=== PATIENT | female | born 1990 | race African-American/Black ===

== ENCOUNTER 2018-01-01 11:52 | Emergency (ER) | payer OTHER, SELFPAY | END 2018-01-01 13:32 | disposition home or self-care (01) | LOC: ERS 11:52 | DX: J11.1 Influenza due to unidentified influenza virus with other respiratory manifestations (principal); F41.9 Anxiety disorder, unspecified | CPT/HCPCS: 99283 ==

== ENCOUNTER 2018-03-07 11:19 | Emergency (ER) | payer SELFPAY ==
[2018-03-07] MEDS ORDERED: Dexamethasone 10 MG/ML VIAL ONE (12:53)
[2018-03-07] MEDS ORDERED: Metoclopramide HCl 10 MG TAB ONE (12:53)
[2018-03-07] MEDS ORDERED: Ketorolac Tromethamine 30 MG/ML VIAL ONE (12:53)
[2018-03-07 13:12] LABS: Hemoglobin 6.7 g/dL (12.0-16.0); Mean Corpuscular HGB CONC 29.4 g/dL (32.0-36.0); Mean Corpuscular Hemoglobin 19.4 pg (27.0-31.0); Mean Platelet Volume 7.9 fL (7.4-10.4); Platelet Count 90 thou/uL (130-400); RBC Distribution Width 19.6 % (11.5-14.5); Red Blood Cell (RBC) Count 3.44 mill/uL (4.20-5.40); White Blood Cell (WBC) Count 4.2 thou/uL (4.8-10.8)
[2018-03-07 13:18] LABS: BHCG - Serum Negative (NEGATIVE); Pregs Control Background? CLEAR/WHITE (CLR/WHITE); Pregs Control Bar Appear? YES (CONTROL BAR)
[2018-03-07 13:28] LABS: Anion Gap 10 mmol/L (10-20); BUN (Urea Nitrogen) 8 mg/dL (7.0-18.7); Calc. Creatinine Clearance 0 mL/min (70-130); Calcium 9.8 mg/dL (7.8-10.44); Carbon Dioxide 26 mmol/L (22-29); Chloride 107 mmol/L (98-107); Estimated GFR-MDRD Greater than 90; Glucose 67 mg/dL (70-105); Potassium 3.7 mmol/L (3.5-5.1); Sodium 139 mmol/L (136-145)
[2018-03-07 13:38] LABS: #Eosinphils 0.1 thou/uL (0.0-0.7); #Lymphocytes 1.7 thou/uL (1.20-3.40); #Monocytes 0.4 thou/uL (0.11-0.59); #Neutrophils 1.9 thou/uL (1.40-6.50); %Basophils 0.8 % (0.0-1.0); %Eosinophils 1.6 % (0.0-10.0); %Lymphocytes 40.6 % (21.0-51.0); %Monocytes 10.4 % (0.0-10.0); %Neutrophils 46.6 % (42.0-75.0); Anisocytosis SLIGHT = 6-15 cells (100X) (0-5/hpf); Hypochromia SLIGHT = 6-15 cells (100X) (0-5/hpf); MDiff Complete? YES; Microcytosis SLIGHT = 6-15 cells (100X) (0-5/hpf); Ovalocytes SLIGHT = 2-5 cells (100X) (0-1/hpf); PLT Morphology Comment Appears Decreased
--- NOTE | 2018-03-07 14:43 | CT ---
CT BRAIN WITHOUT CONTRAST: History: Headache. FINDINGS: Compared with exam of 08-03-10. No evidence of infarct, hemorrhage, midline shift or abnormal extraaxial fluid collections are seen. The ventricular size is normal and the basilar cisterns patent. The bony calvarium is intact. The vis ualized paranasal sinuses and mastoid air cells are clear. IMPRESSION: No CT evidence of acute intracranial process. POS: [facility]
== END 2018-03-07 15:10 | disposition home or self-care (01) ==
LOC: ERS 11:19
DX: R51 Headache (principal); F41.9 Anxiety disorder, unspecified
CPT/HCPCS: 70450; 80048; 84443; 84703; 85025; 96361; 96374; 96375; J1100; J1885

== ENCOUNTER 2018-07-10 16:05 | Inpatient (IN) | payer OTHER, SELFPAY ==
[2018-07-10 16:46] LABS: Hemoglobin 5.9 g/dL (12.0-16.0); Mean Corpuscular HGB CONC 29.4 g/dL (32.0-36.0); Mean Corpuscular Hemoglobin 18.1 pg (27.0-31.0); Mean Corpuscular Volume 61.6 fL (78.0-98.0); Mean Platelet Volume 7.7 fL (7.4-10.4); Platelet Count 122 thou/uL (130-400); RBC Distribution Width 19.6 % (11.5-14.5); Red Blood Cell (RBC) Count 3.27 mill/uL (4.20-5.40); White Blood Cell (WBC) Count 4.2 thou/uL (4.8-10.8)
[2018-07-10 16:47] LABS: INR-International Normal Ratio 1.1; PTT 35.3 SEC (22.9-36.1); Prothrombin Time 14.6 SEC (12.0-14.7)
[2018-07-10 17:00] LABS: #Lymphocytes 1.4 thou/uL (1.20-3.40); #Monocytes 0.6 thou/uL (0.11-0.59); #Neutrophils 2.2 thou/uL (1.40-6.50); %Basophils 0.9 % (0.0-1.0); %Eosinophils 0.9 % (0.0-10.0); %Monocytes 14.1 % (0.0-10.0); %Neutrophils 51.2 % (42.0-75.0); Anisocytosis SLIGHT = 6-15 cells (100X) (0-5/hpf); Hypochromia MODERATE=16-30 cells (100X) (0-5/hpf); MDiff Complete? YES; Microcytosis MODERATE=15-30 cells (100X) (0-5/hpf); Ovalocytes SLIGHT = 2-5 cells (100X) (0-1/hpf); PLT Morphology Comment Appears Decreased; Poikilocytosis SLIGHT = 6-15 cells (100X) (0-5/hpf); Tear Drops SLIGHT = 2-5 cells (100X) (0-1/hpf)
[2018-07-10] MEDS ORDERED: Ondansetron HCl/PF 4 MG/2 ML Vial IVP PRN (18:51)
[2018-07-10] MEDS ORDERED: Acetaminophen 325 MG TAB PO PRN (18:51)
[2018-07-10] MEDS ORDERED: Ondansetron ODT 4 MG TAB SL PRN (18:51)
[2018-07-10] MEDS ORDERED: traMADol HCl 50 MG TAB PO PRN (20:08)
[2018-07-10 20:41] VITALS: BMI 21.2
--- NOTE | 2018-07-10 21:52 | ULT ---
ABDOMINAL ULTRASOUND LIMITED: 07/10/18 CLINICAL HISTORY: Splenomegaly. FINDINGS: The spleen is documented at 13 cm in length. There is no focal splenic lesion. No perisplenic ascites . IMPRESSION: Splenic length of 13 cm. No intrinsic splenic lesion is evident sonographically. POS: [facility]
[2018-07-10 22:23] LABS: MONO NEGATIVE CONTROL ZONE White (Negative) (White); MONO POSITIVE CONTROL Pink Line (Positive) (PINK/RED); Mononucleosis NEGATIVE (NEGATIVE)
[2018-07-10] MEDS: Famotidine/PF 20 mg/2ml Vial SLOW IVP SCH (22:47)
[2018-07-10 22:49] LABS: #Eosinphils 0.1 thou/uL (0.0-0.7); #Lymphocytes 1.7 thou/uL (1.20-3.40); #Monocytes 0.6 thou/uL (0.11-0.59); #Neutrophils 1.9 thou/uL (1.40-6.50); %Basophils 1.1 % (0.0-1.0); %Eosinophils 1.3 % (0.0-10.0); %Lymphocytes 39.3 % (21.0-51.0); %Monocytes 14.5 % (0.0-10.0); %Neutrophils 43.8 % (42.0-75.0); Anisocytosis MODERATE=16-30 cells (100X) (0-5/hpf); Hemoglobin 6.6 g/dL (12.0-16.0); Hypochromia SLIGHT = 6-15 cells (100X) (0-5/hpf); MDiff Complete? YES; Mean Corpuscular HGB CONC 29.9 g/dL (32.0-36.0); Mean Corpuscular Hemoglobin 19.4 pg (27.0-31.0); Mean Corpuscular Volume 64.8 fL (78.0-98.0); Mean Platelet Volume 9.4 fL (7.4-10.4); Ovalocytes SLIGHT = 2-5 cells (100X) (0-1/hpf); PLT Morphology Comment Appears Decreased; Platelet Count 113 thou/uL (130-400); Red Blood Cell (RBC) Count 3.38 mill/uL (4.20-5.40); White Blood Cell (WBC) Count 4.4 thou/uL (4.8-10.8)
[2018-07-11 05:07] LABS: Anion Gap 12 mmol/L (10-20); BUN (Urea Nitrogen) 7 mg/dL (7.0-18.7); Calc. Creatinine Clearance 127 mL/min (70-130); Calcium 9.6 mg/dL (7.8-10.44); Carbon Dioxide 20 mmol/L (22-29); Chloride 110 mmol/L (98-107); Estimated GFR-MDRD Greater than 90; Glucose 86 mg/dL (70-105); Iron 43 ug/dL (50-170); Iron Binding Capacity, Total 360 mcg/dL (265-497); Potassium 3.8 mmol/L (3.5-5.1); Sodium 138 mmol/L (136-145); Transferrin, Serum 288 mg/dL (180-382)
[2018-07-11 05:35] LABS: #Basophils 0.1 thou/uL (0.0-0.2); #Eosinphils 0.1 thou/uL (0.0-0.7); #Monocytes 0.7 thou/uL (0.11-0.59); #Neutrophils 1.9 thou/uL (1.40-6.50); %Basophils 1.1 % (0.0-1.0); %Eosinophils 1.9 % (0.0-10.0); %Lymphocytes 42.7 % (21.0-51.0); %Monocytes 14.1 % (0.0-10.0); %Neutrophils 40.1 % (42.0-75.0); Anisocytosis MODERATE=16-30 cells (100X) (0-5/hpf); MDiff Complete? YES; Mean Corpuscular HGB CONC 30.9 g/dL (32.0-36.0); Mean Corpuscular Volume 67.9 fL (78.0-98.0); Mean Platelet Volume 8.7 fL (7.4-10.4); Microcytosis SLIGHT = 6-15 cells (100X) (0-5/hpf); PLT Morphology Comment Appears Decreased; Platelet Count 115 thou/uL (130-400); RBC Distribution Width 23.3 % (11.5-14.5); Red Blood Cell (RBC) Count 3.81 mill/uL (4.20-5.40); White Blood Cell (WBC) Count 4.6 thou/uL (4.8-10.8)
[2018-07-11 05:56] LABS: Folate (Folic Acid) 9.8 ng/mL (7.0-31.4)
[2018-07-11] MEDS: Famotidine/PF 20 mg/2ml Vial SLOW IVP SCH ×2 (08:12→20:45)
--- NOTE | 2018-07-11 09:58 | CON ---
DATE OF CONSULTATION: 07/11/2018 ADMITTING PHYSICIAN: Dr. Gaudencio Urrutia CONSULTING PHYSICIAN: Samir David M.D. REASON FOR CONSULTATION: Anemia, history of heavy vaginal bleeding. HISTORY OF PRESENT ILLNESS: Ms. Anthony is a 28-year-old female, G2, P2-0-0-2 with a reported last n ormal menstrual period of 05/10/2018 who was admitted by the hospitalist service when she was found t o have severe anemia with a hemoglobin of 5.9 in the ER. She states that her periods have been progr essively heavy over the last 2 months. She states that she tends to have heavy periods and has been placed on control pills in the past, but has not taken them. She is currently now status post 2 units of packed red blood cells. She denies dizziness or headache at the present time. She is als o currently being treated for a toothache on IV antibiotics. PAST OBSTETRICAL HISTORY: Includes 2 uncomplicated vaginal deliveries. PAST MEDICAL HISTORY: None. CURRENT MEDICATIONS: IV amoxicillin. PAST SURGICAL HISTORY: None. ALLERGIES: No known allergies. SOCIAL HISTORY: She states she drinks socially, but does not smoke. She denies illicit drug use. FAMILY HISTORY: Denies gynecologic problems or pelvic malignancies. REVIEW OF SYSTEMS: At the present time she denies dizziness, headache, nausea, vomiting, fever or ch ills. PHYSICAL EXAMINATION: VITAL SIGNS: This morning show a blood pressure of 111/65, pulse of 50, temperature 98.1, O2 saturat ion is 100% on room air. GENERAL: She is very pleasant. She is in no acute distress. ABDOMEN: Soft and nontender. PELVIC: Deferred. LABORATORY DATA: On admission, her hemoglobin was noted to be 5.9. This morning after transfusion h er white count is 4.6. Her hemoglobin and hematocrit are 8.0 and 25.8, respectively, and her platele t count is 115,000. Her beta hCG on admission was less than 1.2. PT and PTT are 14.6 and 35.3. ASSESSMENT: 1. History of menorrhagia. 2. Anemia, now status post 2 units packed red blood cells. PLAN: At this time, I have ordered a pelvic ultrasound to review possible etiologies of her bleeding . Once this is accomplished and reviewed other recommendations will be made.
--- NOTE | 2018-07-11 10:48 | ULT ---
COMPLETE PELVIC ULTRASOUND: HISTORY: Menorrhagia. Anemia. COMPARISON: None. TECHNIQUE: Real-time deal-scale color Doppler and spectral analysis of the pelvis is performed via transabdomina l approach. FINDINGS: The uterus measures 9.4 x 4.7 x 7 cm. Endometrial thickness is 8 mm. The right ovary measures 2.9 x 3.6 x 1.8 cm, and the left ovary measures 3.1 x 3.5 x 1.8 cm. There i s low grade small volume free fluid. IMPRESSION: Normal examination. POS: [facility]
[2018-07-11] MEDS ORDERED: traMADol HCl 50 MG TAB PO PRN (11:02)
[2018-07-11] MEDS ORDERED: Acetaminophen 500 MG TAB PO PRN (11:02)
--- NOTE | 2018-07-11 11:48 | PDOC.EVN ---
Event Note - Event Note Event Note: Pelvic USG returns nonfocal. Will start Provera 10 mg BID and observe for now.
[2018-07-11] MEDS ORDERED: medroxyPROGESTERone Acetate 5 MG TAB PO SCH (12:00)
[2018-07-11 12:51] LABS: #Lymphocytes 1.3 thou/uL (1.20-3.40); #Monocytes 0.5 thou/uL (0.11-0.59); #Neutrophils 2.2 thou/uL (1.40-6.50); %Eosinophils 0.9 % (0.0-10.0); %Lymphocytes 32.3 % (21.0-51.0); %Neutrophils 53.8 % (42.0-75.0); Hemoglobin 8.5 g/dL (12.0-16.0); Hypochromia MODERATE=16-30 cells (100X) (0-5/hpf); MDiff Complete? YES; Mean Corpuscular HGB CONC 31.1 g/dL (32.0-36.0); Mean Corpuscular Volume 67.6 fL (78.0-98.0); Microcytosis MODERATE=15-30 cells (100X) (0-5/hpf); Ovalocytes SLIGHT = 2-5 cells (100X) (0-1/hpf); PLT Morphology Comment Appears Decreased; Platelet Count 111 thou/uL (130-400); Polychromasia MODERATE = 3-4 cells (100X) (0-2/hpf); RBC Distribution Width 23.2 % (11.5-14.5); Red Blood Cell (RBC) Count 4.02 mill/uL (4.20-5.40); White Blood Cell (WBC) Count 4.1 thou/uL (4.8-10.8)
--- NOTE | 2018-07-11 13:34 | PDOC.EVN ---
Event Note - Event Note Event Note: Pelvic exam shows only a small amount of blood in the vault. Cervix is normal in appearance, no lesions seen. Bimanual shows upper limits, nl sized uterus. Rec. discharge on OCPs for cycle control, rx. has been placed on chart. Will f/u with [facility].
[2018-07-11] MEDS: AMOXicillin 250 MG CAP PO SCH ×2 (16:24→20:46)
[2018-07-11] MEDS: medroxyPROGESTERone Acetate 5 MG TAB PO SCH (20:46)
--- NOTE | 2018-07-11 23:34 | PDOC.PN ---
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 - Objective Resuscitation Status: Resuscitation Status FULL:Full Resuscitation Vital Signs & Weight: Vital Signs (12 hours) Temp Pulse Resp BP Pulse Ox 07/11/18 20:00 97.9 F 64 16 121/78 98 07/11/18 18:27 97.5 F L 51 L 12 114/67 100 07/11/18 14:23 98.3 F 77 16 100 Weight Weight 152 lb 1.6 oz I&O: 07/10/18 07/11/18 07/12/18 06:59 06:59 06:59 Intake Total 350 720 Balance 350 720 Result Diagrams: 07/11/18 12:06 07/11/18 03:49 Phys Exam - Physical Examination Constitutional: NAD lying in hospital bed HEENT: moist MMs Respiratory: no wheezing, no rales, no rhonchi, clear to auscultation bilateral Cardiovascular: RRR, no significant murmur, no rub Gastrointestinal: soft, positive bowel sounds Neurological: moves all 4 limbs Psychiatric: normal affect, A&O x 3 Dx/Plan - Plan * fatigue * likely multifactorial - d/w pt that her anemia may have contributed to symptoms but it is currently improved * apprec purchasing buyer c/s * will start provera and closely monitor hemodynamics - which have been stable * could also be 2/2 chronic sleep deprivation - counseled pt re: sleep hygiene * * will request rehab screen at pt request. if not a candidate for rehab, may d/c * greater than 30 min spent discussing medical plan with pt
[2018-07-12 05:09] LABS: Anion Gap 10 mmol/L (10-20); BUN (Urea Nitrogen) 10 mg/dL (7.0-18.7); Calc. Creatinine Clearance 129 mL/min (70-130); Calcium 9.9 mg/dL (7.8-10.44); Carbon Dioxide 22 mmol/L (22-29); Chloride 110 mmol/L (98-107); Estimated GFR-MDRD Greater than 90; Glucose 96 mg/dL (70-105); Sodium 138 mmol/L (136-145)
[2018-07-12] MEDS: medroxyPROGESTERone Acetate 5 MG TAB PO SCH (08:58)
[2018-07-12] MEDS: AMOXicillin 250 MG CAP PO SCH (08:58)
[2018-07-12] MEDS: Famotidine/PF 20 mg/2ml Vial SLOW IVP SCH (08:59)
[2018-07-12] MEDS ORDERED: Multivitamins CHEW w/Iron Tablet PO SCH (09:00)
[2018-07-12 09:12] LABS: ALT (SGPT) 23 U/L (8-55); AST (SGOT) 24 U/L (5-34); Alkaline Phosphatase 44 U/L (40-150); Bilirubin, Direct 0.2 mg/dL (0.1-0.3); Bilirubin, Total 0.4 mg/dL (0.2-1.2); Protein, Total 6.6 g/dL (6.0-8.3)
[2018-07-12 11:35] VITALS: BP 111/71; TEMP 98
== END 2018-07-12 13:54 | disposition home or self-care (01) | DRG 812 ==
LOC: ERS 16:05 → 2NO 17:05 → T4-B 07-11 10:24
PROVIDERS: ADMIT Internal Medicine; ATTEND Internal Medicine
PROC: 30233N1 Transfusion of Nonautologous Red Blood Cells into Peripheral Vein, Percutaneous Approach (ICD-10-PCS; principal; 2018-07-10)
DX: D64.9 Anemia, unspecified (principal); N92.0 Excessive and frequent menstruation with regular cycle
CPT/HCPCS: 36415; 36430; 76705; 76856; 80048; 80076; 82607; 82746; 83540; 83550; 84443; 84466; 84702; 85025; 85060; 85610; 85730; 86308; 86850; 86900; 86901; 93976; 99285; G8978-GP-CI; G8978-GP-CJ; G8979-GP-CI; G8979-GP-CJ; G8980-GP-CI; G8980-GP-CJ; G8987-GO-CI; G8988-GO-CI; G8989-GO-CI; P9016; S0028

== ENCOUNTER 2018-11-10 07:48 | Emergency (ER) | payer OTHER ==
[2018-11-10] MEDS ORDERED: Ketorolac Tromethamine 30 MG/ML VIAL ONE (09:15)
[2018-11-10 09:36] LABS: BHCG - Serum Negative (NEGATIVE); Pregs Control Background? CLEAR/WHITE (CLR/WHITE); Pregs Control Bar Appear? YES (CONTROL BAR)
== END 2018-11-10 09:58 | disposition home or self-care (01) ==
LOC: ERS 07:48
DX: J02.9 Acute pharyngitis, unspecified (principal); F41.9 Anxiety disorder, unspecified
CPT/HCPCS: 84484; 84703; 85379; 87081; 87430; 87804; 93005; 96374; J1885

== ENCOUNTER 2018-12-21 17:10 | Emergency (ER) | payer OTHER ==
[2018-12-21] MEDS ORDERED: Benzonatate 100 MG CAP ONE (18:02)
--- NOTE | 2018-12-21 18:54 | RAD ---
RADIOGRAPH CHEST 2 VIEWS: HISTORY: 28-year-old female with cough. FINDINGS: There is no air space density, pulmonary edema, pleural effusion, pneumothorax, or cardiomegaly. IMPRESSION: No acute cardiopulmonary findings. george POS: [facility]
--- NOTE | 2018-12-26 07:26 | PQF ---
[facility] POST DISCHARGE CLINICAL DOCUMENTATION IMPROVEMENT CLARIFICATION FORM l Todays Date: 12/25/18 l Patients Name AMOR MALAVE l l Admit Date 12/21/18 l Disch Date 12/21/18 Peanut Picker Name [email or web address] To be completed by Peanut Picker: Present Clinical Indicators - Signs / Symptoms Results and Location in Medical Record [ ] Documentation of: [ ] [ ] Documentation of: [ ] [ ] Documentation of: [ ] [ ] Documentation of: [ ] [ ] Risks [ ] [ ] [ ] Treatment [ ] BRONCHITIS MISSING SPECIFICITY FOR BRONCHITIS WHETHER ACUTE OR CHRONIC. [ ] [ ] To be completed by Physician BEN Viveros Krista The documentation in this patients record requires clarification to ensure coding compliance and accuracy. Check the appropriate box and include in your discharge summary. [ ] [ ] [ ] [ ] Please check this box if this does not apply to this patient [ ] Unable to determine [ ] Other diagnosis: Review the following information and exercise your independent professional judgment in responding to the clarification. Based upon the clinical findings, risk factors, and treatment, please clarify if you are treating one of the above probable or suspected diagnoses. Physician Signature: Date Time MTDD
== END 2018-12-21 18:08 | disposition home or self-care (01) ==
LOC: ERS 17:10
DX: J20.9 Acute bronchitis, unspecified (principal); J31.0 Chronic rhinitis; D50.0 Iron deficiency anemia secondary to blood loss (chronic); F41.9 Anxiety disorder, unspecified; Z79.899 Other long term (current) drug therapy
CPT/HCPCS: 71046

== ENCOUNTER 2019-08-30 11:57 | Emergency (ER) | payer OTHER, SELFPAY ==
[2019-08-30 13:01] LABS: Hemoglobin 8.2 g/dL (12.0-16.0); Mean Corpuscular HGB CONC 30.1 g/dL (32.0-36.0); Mean Corpuscular Hemoglobin 19.6 pg (27.0-31.0); Mean Corpuscular Volume 65.2 fL (78.0-98.0); Mean Platelet Volume 9.5 fL (7.4-10.4); Platelet Count 140 thou/uL (130-400); RBC Distribution Width 17.9 % (11.5-14.5); Red Blood Cell (RBC) Count 4.19 mill/uL (4.20-5.40); White Blood Cell (WBC) Count 4.5 thou/uL (4.8-10.8)
[2019-08-30 13:09] LABS: #Lymphocytes 1.4 thou/uL (1.20-3.40); #Monocytes 0.5 thou/uL (0.11-0.59); #Neutrophils 2.5 thou/uL (1.40-6.50); %Eosinophils 0.6 % (0.0-10.0); %Lymphocytes 30.1 % (21.0-51.0); %Neutrophils 56.2 % (42.0-75.0); Hypochromia SLIGHT = 6-15 cells (100X) (0-5/hpf); Large Platelets MODERATE; MDiff Complete? YES; Microcytosis SLIGHT = 6-15 cells (100X) (0-5/hpf); Platelet Morphology Comment Appears Adequate; Polychromasia SLIGHT = 2-3 cells (100X) (0-2/hpf)
[2019-08-30 13:14] LABS: ALT (SGPT) 10 U/L (8-55); AST (SGOT) 13 U/L (5-34); Albumin 4.7 g/dL (3.5-5.0); Alkaline Phosphatase 59 U/L (40-110); Anion Gap 11 mmol/L (10-20); BUN (Urea Nitrogen) 7 mg/dL (7.0-18.7); Bilirubin, Total 0.4 mg/dL (0.2-1.2); Calc. Creatinine Clearance 0 mL/min (70-130); Carbon Dioxide 22 mmol/L (22-29); Chloride 106 mmol/L (98-107); Estimated GFR-MDRD Greater than 90; Globulin 3.1 g/dL (2.4-3.5); Glucose 94 mg/dL (70-105); Potassium 3.6 mmol/L (3.5-5.1); Protein, Total 7.8 g/dL (6.0-8.3); Sodium 135 mmol/L (136-145)
[2019-08-30 13:29] LABS: Bilirubin Negative (Negative); Blood, Urine Negative (Negative); Clarity Clear (Clear); Glucose, Urine (Dipstick) Normal (Negative); Leukocyte 250 Leu/uL (Negative); Mucous/LPF Rare LPF (<2+); Nitrite Negative (Negative); Protein, Urine (Dipstick) Negative (Neg-Trace); RBC/HPF 0-3 HPF (0-3); Squamous Epithelial 0-3 HPF (0-3); Urobilinogen Normal mg/dL (Less than 2)
[2019-08-30 13:36] LABS: Bacteria/HPF Rare-Few HPF (None Seen); Pregnancy Test - Urine (BHCG) Negative (Negative); Pregu Control Background? CLEAR/WHITE (CLR/WHITE); Pregu Control Bar Appear? YES (CONTROL BAR); Specific Gravity 1.013 (1.002-1.036)
--- NOTE | 2019-09-01 17:17 | EKG ---
Test Reason : Blood Pressure : / mmHG Vent. Rate : 069 BPM Atrial Rate : 069 BPM P-R Int : 158 ms QRS Dur : 078 ms QT Int : 384 ms P-R-T Axes : 004 038 012 degrees QTc Int : 411 ms Normal sinus rhythm Normal ECG Confirmed by BIJAN LARA MD ([id number]), television news video editor DENNIS DOMINIQUE ([id number]) on 09/01/2019 5:16:43 PM Referred By: Confirmed By:BIJAN LARA MD
== END 2019-08-30 14:00 | disposition home or self-care (01) ==
LOC: ERS 11:57
DX: D64.9 Anemia, unspecified (principal); R55 Syncope and collapse; F41.9 Anxiety disorder, unspecified; D50.9 Iron deficiency anemia, unspecified
CPT/HCPCS: 36415; 80053; 81003; 81015; 81025; 85025; 93005

== ENCOUNTER 2020-04-12 15:56 | Emergency (ER) | payer SELFPAY ==
[2020-04-12 16:52] LABS: #Lymphocytes 1.4 thou/uL (1.20-3.40); #Monocytes 0.5 thou/uL (0.11-0.59); #Neutrophils 2.8 thou/uL (1.40-6.50); %Basophils 0.9 % (0.0-1.0); %Eosinophils 0.7 % (0.0-10.0); %Lymphocytes 29.3 % (21.0-51.0); %Monocytes 10.6 % (0.0-10.0); %Neutrophils 58.4 % (42.0-75.0); Hemoglobin 7.9 g/dL (12.0-16.0); Mean Corpuscular HGB CONC 29.7 g/dL (32.0-36.0); Mean Corpuscular Hemoglobin 22.6 pg (27.0-31.0); Mean Corpuscular Volume 76.2 fL (78.0-98.0); RBC Distribution Width 15.9 % (11.5-14.5); White Blood Cell (WBC) Count 4.9 thou/uL (4.8-10.8)
[2020-04-12 17:05] LABS: Anisocytosis SLIGHT = 6-15 cells (100X) (0-5/hpf); Hypochromia SLIGHT = 6-15 cells (100X) (0-5/hpf); MDiff Complete? YES; Mean Platelet Volume 8.8 fL (7.4-10.4); Microcytosis SLIGHT = 6-15 cells (100X) (0-5/hpf); Ovalocytes SLIGHT = 2-5 cells (100X) (0-1/hpf); Platelet Count 121 thou/uL (130-400); Platelet Morphology Comment Appears Decreased; Polychromasia SLIGHT = 2-3 cells (100X) (0-2/hpf); Tear Drops SLIGHT = 2-5 cells (100X) (0-1/hpf)
[2020-04-12 17:07] LABS: ALT (SGPT) 18 U/L (8-55); AST (SGOT) 16 U/L (5-34); Albumin 4.2 g/dL (3.5-5.0); Alkaline Phosphatase 52 U/L (40-110); Anion Gap 9 mmol/L (10-20); BUN (Urea Nitrogen) 8 mg/dL (7.0-18.7); Bilirubin, Total 0.2 mg/dL (0.2-1.2); Calc. Creatinine Clearance 0 mL/min (70-130); Calcium 9.4 mg/dL (7.8-10.44); Carbon Dioxide 24 mmol/L (22-29); Chloride 109 mmol/L (98-107); Estimated GFR-MDRD 84; Globulin 2.9 g/dL (2.4-3.5); Glucose 107 mg/dL (70-105); Potassium 3.5 mmol/L (3.5-5.1); Protein, Total 7.1 g/dL (6.0-8.3); Sodium 138 mmol/L (136-145)
[2020-04-12 17:11] LABS: BHCG - Serum Negative (NEGATIVE); Pregs Control Background? CLEAR/WHITE (CLR/WHITE); Pregs Control Bar Appear? YES (CONTROL BAR)
== END 2020-04-12 17:33 | disposition home or self-care (01) ==
LOC: ERS 15:56
DX: D64.9 Anemia, unspecified (principal); F41.9 Anxiety disorder, unspecified
CPT/HCPCS: 36415; 80053; 84703; 85025; 86850; 86900; 86901; 99284

== ENCOUNTER 2020-08-08 17:44 | Emergency (ER) | payer SELFPAY ==
[2020-08-08 19:04] LABS: BHCG - Serum Negative (NEGATIVE); Pregs Control Background? CLEAR/WHITE (CLR/WHITE); Pregs Control Bar Appear? YES (CONTROL BAR)
[2020-08-08 19:06] LABS: #Basophils 0.1 thou/uL (0.0-0.2); #Eosinphils 0.1 thou/uL (0.0-0.7); #Lymphocytes 1.9 thou/uL (1.20-3.40); #Monocytes 0.4 thou/uL (0.11-0.59); #Neutrophils 2.1 thou/uL (1.40-6.50); %Basophils 1.1 % (0.0-1.0); %Eosinophils 2.2 % (0.0-10.0); %Lymphocytes 42.1 % (21.0-51.0); %Monocytes 8.3 % (0.0-10.0); %Neutrophils 46.3 % (42.0-75.0); Hemoglobin 11.7 g/dL (12.0-16.0); Mean Corpuscular HGB CONC 30.4 g/dL (32.0-36.0); Mean Corpuscular Volume 82.4 fL (78.0-98.0); RBC Distribution Width 22.4 % (11.5-14.5); Red Blood Cell (RBC) Count 4.69 mill/uL (4.20-5.40); White Blood Cell (WBC) Count 4.4 thou/uL (4.8-10.8)
[2020-08-08 19:19] LABS: Hypochromia SLIGHT = 6-15 cells (100X) (0-5/hpf); MDiff Complete? YES; Mean Platelet Volume 9.3 fL (7.4-10.4); Ovalocytes SLIGHT = 2-5 cells (100X) (0-1/hpf); Platelet Count 162 thou/uL (130-400); Platelet Morphology Comment Appears Adequate; Polychromasia SLIGHT = 2-3 cells (100X) (0-2/hpf); Tear Drops SLIGHT = 2-5 cells (100X) (0-1/hpf)
== END 2020-08-08 19:48 | disposition home or self-care (01) ==
LOC: ERS 17:44
DX: D25.9 Leiomyoma of uterus, unspecified (principal); D50.9 Iron deficiency anemia, unspecified; F41.9 Anxiety disorder, unspecified; Z79.899 Other long term (current) drug therapy
CPT/HCPCS: 36415; 84703; 85025; 86900; 86901; 99284

== ENCOUNTER 2020-09-29 17:48 | Emergency (ER) | payer SELFPAY ==
[2020-09-29 18:36] LABS: #Basophils 0.1 thou/uL (0.0-0.2); #Eosinphils 0.1 thou/uL (0.0-0.7); #Lymphocytes 2.5 thou/uL (1.20-3.40); #Monocytes 0.5 thou/uL (0.11-0.59); #Neutrophils 2.9 thou/uL (1.40-6.50); %Basophils 1.5 % (0.0-1.0); %Eosinophils 1.2 % (0.0-10.0); %Lymphocytes 41.3 % (21.0-51.0); %Monocytes 8.6 % (0.0-10.0); %Neutrophils 47.4 % (42.0-75.0); Hemoglobin 13.1 g/dL (12.0-16.0); Mean Corpuscular HGB CONC 33.7 g/dL (32.0-36.0); Mean Corpuscular Hemoglobin 30.2 pg (27.0-31.0); Mean Corpuscular Volume 89.5 fL (78.0-98.0); Mean Platelet Volume 11.5 fL (7.4-10.4); Platelet Count 175 thou/uL (130-400); RBC Distribution Width 15.3 % (11.5-14.5); Red Blood Cell (RBC) Count 4.33 mill/uL (4.20-5.40); White Blood Cell (WBC) Count 6.1 thou/uL (4.8-10.8)
[2020-09-29 18:47] LABS: BHCG - Serum Negative (NEGATIVE); Pregs Control Background? CLEAR/WHITE (CLR/WHITE); Pregs Control Bar Appear? YES (CONTROL BAR)
--- NOTE | 2020-09-29 18:47 | RAD ---
FRONTAL RADIOGRAPH CHEST: 09/29/20 COMPARISON: 12/21/18. HISTORY: Vaginal bleeding and cramping. FINDINGS: The lungs appear clear. Heart and mediastinal contours are unremarkable. There is scoliotic curvature of the spine with apex to the right in the lower thoracic region and AP to the left at the thoracolumbar junction. IMPRESSION: No acute findings. POS: [facility]
[2020-09-29 18:48] LABS: ALT (SGPT) 11 U/L (8-55); AST (SGOT) 15 U/L (5-34); Albumin 4.5 g/dL (3.5-5.0); Alkaline Phosphatase 44 U/L (40-110); Anion Gap 12 mmol/L (10-20); BUN (Urea Nitrogen) 10 mg/dL (7.0-18.7); Bilirubin, Total 0.2 mg/dL (0.2-1.2); Calc. Creatinine Clearance 0 mL/min (70-130); Calcium 10.3 mg/dL (7.8-10.44); Carbon Dioxide 25 mmol/L (22-29); Chloride 105 mmol/L (98-107); Estimated GFR-MDRD 80; Glucose 92 mg/dL (70-105); Potassium 3.5 mmol/L (3.5-5.1); Protein, Total 7.5 g/dL (6.0-8.3); Sodium 138 mmol/L (136-145)
== END 2020-09-29 20:33 | disposition left against medical advice (07) ==
LOC: ERS 17:48
DX: Z53.21 Procedure and treatment not carried out due to patient leaving prior to being seen by health care provider (principal)
CPT/HCPCS: 36415; 71045; 80053; 84484; 84703; 85025; 93005